=== PATIENT | female | born 1990 | race Hispanic/Latino ===

== ENCOUNTER 2021-07-22 18:00 | Inpatient (IN) | payer OTHER ==
[2021-07-22] MEDS ORDERED: Misoprostol 200 MCG TAB PR PRN (21:50)
[2021-07-22] MEDS ORDERED: Butorphanol Tartrate 1 MG/ML VIAL SLOW IVP PRN (21:50)
[2021-07-22] MEDS ORDERED: Ondansetron PF 4 MG/2 ML Vial IVP PRN (21:50)
[2021-07-22] MEDS ORDERED: Methylergonovine 0.2 MG/ML VIAL IM PRN (21:50)
[2021-07-22] MEDS ORDERED: Promethazine HCl 25 MG/ML VIAL IM PRN (21:50)
[2021-07-22] MEDS ORDERED: Lidocaine 1% (PF) 30 ML VIAL SC PRN (21:50)
[2021-07-22] MEDS ORDERED: Docusate 100 MG CAP PO PRN (21:50)
[2021-07-22] MEDS ORDERED: Acetaminophen 500 MG TAB PO PRN (21:50)
[2021-07-22] MEDS ORDERED: hydrALAZINE 20 MG/ML VIAL SLOW IVP PRN (21:50)
[2021-07-22] MEDS ORDERED: Carboprost 250 MCG/ML AMP IM PRN (21:50)
[2021-07-22] MEDS ORDERED: Ibuprofen 800 MG TAB PO PRN (21:50)
[2021-07-22] MEDS ORDERED: NS w/ Oxytocin 30 units 500 ML IV SCH ×2 (22:00)
[2021-07-22 22:02] VITALS: BMI 26.5
[2021-07-22] MEDS: Lactated Ringer's 1,000 ML IV SCH (22:25)
[2021-07-22 23:01] LABS: Hemoglobin 11.1 g/dL (12.0-15.5); Mean Corpuscular HGB CONC 31.2 g/dL (32.0-36.0); Mean Corpuscular Hemoglobin 22.2 pg (27.0-33.0); Mean Corpuscular Volume 71.1 fl (81.6-98.3); Mean Platelet Volume 12.1 fl (7.4-10.4); Platelet Count 217 10x3/uL (150-450); RBC Distribution Width 18.6 % (11.5-14.5); Red Blood Cell (RBC) Count 5.01 10x6/uL (3.90-5.03); White Blood Cell (WBC) Count 8.4 10x3/uL (3.5-10.5)
[2021-07-22] MEDS: Misoprostol 100 MCG TAB VAG SCH (23:20)
[2021-07-22 23:23] LABS: HBSAg Index 0.21 S/CO (0-0.99); Hep B Surf Ag Non-Reactive S/CO (NonReactive)
[2021-07-22 23:24] LABS: Syphilis Antibody Nonreactive (Nonreactive); Syphilis Antibody Index 0.04 S/CO (<1.00 Non-Reactive)
[2021-07-22 23:52] LABS: SARS-CoV-2 NAA Rapid Test DETECTED (NotDetected)
[2021-07-23] MEDS: Misoprostol 100 MCG TAB VAG SCH ×2 (02:53→17:16)
[2021-07-23] MEDS ORDERED: Fentanyl 2 mcg/Bup 0.1% Cadd 100 ML ONE (04:41)
[2021-07-23] MEDS ORDERED: diphenhydrAMINE 50 MG/ML VIAL IVP PRN (05:37)
[2021-07-23] MEDS ORDERED: Ondansetron PF 4 MG/2 ML Vial IVP PRN (05:37)
[2021-07-23] MEDS ORDERED: Promethazine HCl 25 MG/ML VIAL IM PRN (05:37)
[2021-07-23] MEDS ORDERED: Hydrocerin (Eucerin) Cream 120 gm Jar TOP PRN (05:37)
[2021-07-23] MEDS ORDERED: Lactated Ringer's 500 ML IV PRN (05:37)
[2021-07-23] MEDS ORDERED: ePHEDrine Sulfate 50 MG/10 ML VIAL SLOW IVP PRN (05:37)
[2021-07-23] MEDS ORDERED: Naloxone HCl 0.4 mg/ml Vial IVP PRN ×2 (05:37)
[2021-07-23] MEDS: Lactated Ringer's 1,000 ML IV SCH ×2 (05:41→17:16)
[2021-07-23] MEDS ORDERED: Fentanyl 2 mcg/Bupivacaine 0.1% Cassette 100 ML EPIDURAL SCH (05:45)
[2021-07-23] MEDS ORDERED: Communication Order-Pharmacy FS SCH (05:45)
[2021-07-23] MEDS ORDERED: NS w/ Oxytocin 30 units 500 ML ONE (07:53)
[2021-07-23 14:14] LABS: pH (Cord, venous) 7.179 (7.250-7.350)
[2021-07-23] MEDS ORDERED: Bisacodyl 10 MG SUPP PR PRN (14:25)
[2021-07-23] MEDS ORDERED: Milk Of Magnesia 30 ML UDCUP PO PRN (14:25)
[2021-07-23] MEDS ORDERED: Boostrix 0.5 ML (Tdap) VIAL IM ONE (14:25)
[2021-07-23] MEDS: Ferrous Sulfate 325 MG TAB PO SCH (17:30)
[2021-07-23] MEDS: Ibuprofen 800 MG TAB PO PRN (18:22)
[2021-07-23] MEDS: Acetaminophen 325 MG TAB PO PRN (18:22)
[2021-07-23] MEDS: Docusate 100 MG CAP PO SCH (21:52)
[2021-07-24] MEDS: Ibuprofen 800 MG TAB PO PRN ×2 (01:52→09:13)
[2021-07-24] MEDS ORDERED: Lanolin Ointment 7 GM TUBE TOP PRN (05:45)
[2021-07-24] MEDS: Ferrous Sulfate 325 MG TAB PO SCH (07:29)
[2021-07-24] MEDS: Docusate 100 MG CAP PO SCH (09:13)
[2021-07-24] MEDS: Acetaminophen 325 MG TAB PO PRN (12:30)
[2021-07-24 12:33] VITALS: TEMP 98.1
[2021-07-24 16:31] VITALS: BP 113/65
== END 2021-07-24 17:30 | disposition home or self-care (01) | DRG 805 ==
LOC: CSHLD 21:42 → CSHANTE 07-23 16:35
PROVIDERS: ADMIT Family Medicine; ATTEND Family Medicine
PROC: 8E0ZXY6 Isolation (ICD-10-PCS; 2021-07-22)
PROC: 3E0DXGC Introduction of Other Therapeutic Substance into Mouth and Pharynx, External Approach (ICD-10-PCS; 2021-07-22)
PROC: 10E0XZZ Delivery of Products of Conception, External Approach (ICD-10-PCS; principal; 2021-07-23)
PROC: 0KQM0ZZ Repair Perineum Muscle, Open Approach (ICD-10-PCS; 2021-07-23)
PROC: 3E033VJ Introduction of Other Hormone into Peripheral Vein, Percutaneous Approach (ICD-10-PCS; 2021-07-23)
DX: O41.03X0 Oligohydramnios, third trimester, not applicable or unspecified (principal); Z37.0 Single live birth; Z3A.37 37 weeks gestation of pregnancy; U07.1 COVID-19; O98.52 Other viral diseases complicating childbirth; O99.02 Anemia complicating childbirth; D64.9 Anemia, unspecified; O99.52 Diseases of the respiratory system complicating childbirth; J45.909 Unspecified asthma, uncomplicated; O69.89X0 Labor and delivery complicated by other cord complications, not applicable or unspecified; O70.1 Second degree perineal laceration during delivery
CPT/HCPCS: 36415; 51702; 82805; 85027; 86780; 86850; 86900; 86901; 87340; J2590; J7120; U0002

== ENCOUNTER 2023-02-25 22:46 | Day surgery (SDC) | payer OTHER ==
[2023-02-25] MEDS ORDERED: hydrALAZINE 20 MG/ML VIAL SLOW IVP PRN (23:27)
[2023-02-25] MEDS ORDERED: Lactated Ringer's 1,000 ML IV SCH (23:30)
== END 2023-02-26 02:48 | disposition home or self-care (01) ==
LOC: CSHLD/OP 22:46
PROVIDERS: ATTEND Family Medicine
DX: O47.1 False labor at or after 37 completed weeks of gestation (principal); O09.893 Supervision of other high risk pregnancies, third trimester; O99.891 Other specified diseases and conditions complicating pregnancy; R19.7 Diarrhea, unspecified; Z3A.36 36 weeks gestation of pregnancy
CPT/HCPCS: 99283

== ENCOUNTER 2023-02-26 18:21 | Inpatient (IN) | payer OTHER ==
[2023-02-26 19:09] VITALS: BMI 26.5
[2023-02-26 20:01] LABS: Fetal Membranes Rupture RUPTURE DETECTED (No Rupture)
[2023-02-26] MEDS ORDERED: Lidocaine 1% (PF) 30 ML VIAL SC PRN (20:31)
[2023-02-26] MEDS ORDERED: Carboprost 250 MCG/ML AMP IM PRN (20:31)
[2023-02-26] MEDS ORDERED: Tranexamic Acid 1,000 MG/10 ML VIAL IVP PRN (20:31)
[2023-02-26] MEDS ORDERED: Ondansetron PF 4 MG/2 ML Vial IVP PRN (20:31)
[2023-02-26] MEDS ORDERED: Methylergonovine 0.2 MG/ML VIAL IM PRN (20:31)
[2023-02-26] MEDS ORDERED: Promethazine HCl 25 MG/ML VIAL IM PRN (20:31)
[2023-02-26] MEDS ORDERED: hydrALAZINE 20 MG/ML VIAL SLOW IVP PRN (20:31)
[2023-02-26] MEDS ORDERED: Misoprostol 200 MCG TAB PR PRN (20:31)
[2023-02-26] MEDS ORDERED: Butorphanol Tartrate 1 MG/ML VIAL SLOW IVP PRN (20:31)
[2023-02-26] MEDS ORDERED: Acetaminophen 500 MG TAB PO PRN (20:31)
[2023-02-26] MEDS ORDERED: NS w/ Oxytocin 30 units 500 ML IV SCH ×3 (20:45)
[2023-02-26] MEDS ORDERED: Lactated Ringer's 1,000 ML IV SCH (20:45)
[2023-02-26 21:54] LABS: Hematocrit 44.4 % (34.9-44.5); Hemoglobin 15.2 g/dL (12.0-15.5); Mean Corpuscular HGB CONC 34.2 g/dL (32.0-36.0); Mean Corpuscular Hemoglobin 29.7 pg (27.0-33.0); Mean Corpuscular Volume 86.9 fl (81.6-98.3); Mean Platelet Volume 11.9 fl (7.4-10.4); Platelet Count 179 10x3/uL (150-450); RBC Distribution Width 13.5 % (11.5-14.5); Red Blood Cell (RBC) Count 5.11 10x6/uL (3.90-5.03); White Blood Cell (WBC) Count 8.8 10x3/uL (3.5-10.5)
[2023-02-26 22:27] LABS: HBSAg Index 0.19 S/CO (0-0.99); Hep B Surf Ag - L&D Non-Reactive S/CO (NonReactive); Syphilis Antibody Nonreactive (Nonreactive); Syphilis Antibody Index 0.05 S/CO (<1.00 Non-Reactive)
[2023-02-26] MEDS ORDERED: fentaNYL/Ropivacaine Epidural 100 ML ONE (23:55)
[2023-02-27] MEDS ORDERED: ePHEDrine Sulfate 50 MG/10 ML VIAL SLOW IVP PRN (01:37)
[2023-02-27] MEDS ORDERED: diphenhydrAMINE 50 MG/ML VIAL IVP PRN (01:37)
[2023-02-27] MEDS ORDERED: Lactated Ringer's 500 ML IV PRN (01:37)
[2023-02-27] MEDS ORDERED: Naloxone HCl 0.4 mg/ml Vial IVP PRN ×2 (01:37)
[2023-02-27] MEDS ORDERED: Ondansetron PF 4 MG/2 ML Vial IVP PRN (01:37)
[2023-02-27] MEDS ORDERED: Acetaminophen 325 MG TAB PO PRN (01:37)
[2023-02-27] MEDS ORDERED: Promethazine HCl 25 MG/ML VIAL IM PRN (01:37)
[2023-02-27] MEDS ORDERED: Moisturizing Cream (Eucerin) 113 GM JAR TOP PRN (01:37)
[2023-02-27] MEDS ORDERED: Communication Order-Pharmacy FS SCH (01:45)
[2023-02-27] MEDS ORDERED: fentaNYL 2 mcg/Ropivacaine 0.2% Epidural 100 ML CADD EPIDURAL SCH (01:45)
[2023-02-27] MEDS ORDERED: Bisacodyl 10 MG SUPP PR PRN (07:02)
[2023-02-27] MEDS ORDERED: Benzocaine-Menthol 82.5 ML CAN TOP PRN (07:02)
[2023-02-27] MEDS ORDERED: hydrALAZINE 20 MG/ML VIAL SLOW IVP PRN (07:02)
[2023-02-27] MEDS ORDERED: Milk Of Magnesia 30 ML UDCUP PO PRN (07:02)
[2023-02-27] MEDS ORDERED: Boostrix 0.5 ML (Tdap) VIAL (>/=7 yrs of age) IM ONE (07:02)
[2023-02-27] MEDS: Ferrous Sulfate 325 MG TAB PO SCH ×2 (09:35→20:37)
[2023-02-27] MEDS: Docusate 100 MG CAP PO SCH ×2 (09:35→21:02)
[2023-02-27] MEDS: Ibuprofen 800 MG TAB PO SCH (21:02)
[2023-02-28] MEDS: Ibuprofen 800 MG TAB PO SCH ×2 (04:55→12:16)
[2023-02-28] MEDS: Ferrous Sulfate 325 MG TAB PO SCH (08:17)
[2023-02-28] MEDS: Docusate 100 MG CAP PO SCH (08:17)
[2023-02-28] MEDS ORDERED: Bupivacaine 0.25% HCL 30 ML VIAL ONE (10:00)
== END 2023-02-28 12:30 | disposition home or self-care (01) | DRG 807 ==
LOC: CSHLD/OP 18:21 → CSHLD 21:04
PROVIDERS: ADMIT Emergency Medicine; ATTEND Emergency Medicine
PROC: 10E0XZZ Delivery of Products of Conception, External Approach (ICD-10-PCS; principal; 2023-02-27)
PROC: 0KQM0ZZ Repair Perineum Muscle, Open Approach (ICD-10-PCS; 2023-02-27)
DX: O42.02 Full-term premature rupture of membranes, onset of labor within 24 hours of rupture (principal); Z37.0 Single live birth; Z3A.37 37 weeks gestation of pregnancy; O70.1 Second degree perineal laceration during delivery; O69.81X0 Labor and delivery complicated by cord around neck, without compression, not applicable or unspecified
CPT/HCPCS: 51702; 84112; 85027; 86780; 86850; 86900; 86901; 87340; 99283; 99285; J2590; S0020